=== PATIENT | female | born 2000 | race Hispanic/Latino ===

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

== ENCOUNTER 2023-10-07 18:01 | Emergency (ER) | payer OTHER ==
[~2023-10-07] VITALS: Ht 162.6 cm; Wt 45.5 kg
[~2023-10-07 18:01] MED LIST changes: +ONDANSETRON ODT4 MG PO; +ZOLOFT50 MG PO
[2023-10-07] MEDS ORDERED: ABILIFY10 MG PO (19:47)
[2023-10-07] MEDS ORDERED: ARIPIPRAZOLE15 MG PO (19:48)
[2023-10-07 20:12] LABS: BASOPHILS 0.3 % (0-2); EOSINOPHILS 0.3 % (0-6); HEMATOCRIT 43.9 % (35.0-50.0); HEMOGLOBIN 15.3 g/dL (12.0-18.0); LYMPHOCYTES 20.1 % (24-44); MCH 31.5 (27-36); MCHC 34.8 g/dl (30-36); MCV 90.4 fl (81-99); MONOCYTES 11.2 % (0-12); NEUTROPHILS 68.1 % (39-80); PLATELET COUNT 257 K/uL (140-440); RBC 4.85 M/ul (4.3-5.7); RDW 13.3 (10.5-15.0)
[2023-10-07 20:38] LABS: ALBUMIN 3.9 g/dL (3.4-5.0); ALBUMIN/GLOBULIN RATIO 1.05 (1.1-2.4); ANION GAP 16.9 (7-21); BILIRUBIN, TOTAL 0.8 ng/dL (0.2-1.0); BUN/CREATININE RATIO 20.63 (6.0-28.6); CALCIUM 9.4 mg/dL (8.5-10.1); CREATININE, SERUM 0.63 mg/dL (0.55-1.02); MAGNESIUM 2.1 mg/dL (1.8-2.4); POTASSIUM 2.9 mmol/L (3.5-5.1); PROTEIN, TOTAL 7.6 g/dL (6.4-8.2)
[2023-10-07] MEDS ORDERED: ONDANSETRON ODT4 MG PO (23:53)
[2023-10-08] LABS: BILIRUBIN, URINE POSITIVE (negative); BLOOD/HGB, URINE NEGATIVE (Negative); KETONE, URINE >=80 (Negative); LEUK ESTERASE, URINE NEGATIVE (negative); NITRITE, URINE NEGATIVE (negative)
[2023-10-08 00:38] VITALS: BP 117/81
== END 2023-10-08 00:38 | disposition home or self-care (01) ==
LOC: ED 18:01
PROVIDERS: Internal Medicine
DX: R11.2 Nausea with vomiting, unspecified (principal); F12.10 Cannabis abuse, uncomplicated; Z79.899 Other long term (current) drug therapy
CPT/HCPCS: 36415; 80053; 81003; 83735; 84703; 85025; 96374; 99284-25; A9270; J2405; J7121